=== PATIENT | female | born 1990 | race Caucasian/White ===

== ENCOUNTER 2018-04-16 22:52 | Emergency (ER) | payer SELFPAY ==
[~2018-04-16] VITALS: Ht 157.5 cm; Wt 52.8 kg
[2018-04-16 23:04] VITALS: Ht 157.5 cm; Wt 52.8 kg
[2018-04-17 00:25] LABS: BASOPHIL % 0.3 % (0-2); PLATELET COUNT 224 x10^3mcL (130-400); RED CELL DISTRIBUTION WIDTH 13.1 % (11.5-14.5)
[2018-04-17 00:28] LABS: UA SPECIFIC GRAVITY >=1.030 (1.005-1.035); microscopic required? YES; urine erythrocyte 3+ (NEGATIVE)
[2018-04-17 01:48] VITALS: BP 127/67
[2018-04-18] MEDS ORDERED: NITROFURANTOIN100 MG PO (00:02)
== END 2018-04-17 01:48 | disposition home or self-care (01) ==
LOC: ED 22:52
PROVIDERS: Emergency Medicine
DX: O20.0 Threatened abortion (principal); Z88.0 Allergy status to penicillin
CPT/HCPCS: 36415

== ENCOUNTER 2018-04-17 19:59 | Inpatient (IN) | payer SELFPAY ==
[~2018-04-17] VITALS: Ht 157.5 cm; Wt 52.7 kg
[2018-04-17 20:23] VITALS: Ht 157.5 cm; Wt 52.7 kg
[2018-04-17 20:48] LABS: BASOPHIL % 0.7 % (0-2); PLATELET COUNT 272 x10^3mcL (130-400); RED CELL DISTRIBUTION WIDTH 12.6 % (11.5-14.5)
[2018-04-18] VITALS (8 sets, daily range): BP systolic 92–113; BP diastolic 50–77
[2018-04-18] MEDS ORDERED: NITROFURANTOIN100 MG PO (00:02)
[2018-04-18 00:08] LABS: MAGNESIUM 2.1 mg/dL (1.8-2.4); PHOSPHOROUS 6.1 mg/dL (2.5-4.9)
[2018-04-18 00:29] LABS: FREE T4 0.89 ng/dL (0.76-1.46); FREE THYROXINE INDEX 2.2 ug/dL (1.4-4.5); T4(THYROXINE) 6.6 ug/dL (4.7-13.3)
[2018-04-18 00:51] LABS: T3 TOTAL 1.3 ng/mL
[2018-04-18 06:29] LABS: BASOPHIL % 0.3 % (0-2); PLATELET COUNT 213 x10^3mcL (130-400); RED CELL DISTRIBUTION WIDTH 11.9 % (11.5-14.5)
[2018-04-18 06:32] LABS: CALCIUM 8.4 mg/dL (8.5-10.1); CARBON DIOXIDE 25.3 mmol/L (21-32); CHLORIDE SERUM 107 mmol/L (98-107); CREATININE SERUM 0.4 mg/dL (0.6-1.0); GFR1 > 60 mL/min; GLUCOSE SERUM 100 mg/dL (74-106); MAGNESIUM 1.7 mg/dL (1.8-2.4); PHOSPHOROUS 4.5 mg/dL (2.5-4.9); POTASSIUM SERUM 4.1 mmol/L (3.5-5.1); SODIUM SERUM 139 mmol/L (136-145)
[2018-04-18 13:29] LABS: BASOPHIL % 0.3 % (0-2); PLATELET COUNT 190 x10^3mcL (130-400); RED CELL DISTRIBUTION WIDTH 12.5 % (11.5-14.5)
[2018-04-19 00:59] LABS: BASOPHIL % 0.2 % (0-2); PLATELET COUNT 198 x10^3mcL (130-400); RED CELL DISTRIBUTION WIDTH 11.9 % (11.5-14.5)
[2018-04-19 05:03] VITALS: BP 98/42
[2018-04-19 06:53] LABS: CALCIUM 8.1 mg/dL (8.5-10.1); CARBON DIOXIDE 24.9 mmol/L (21-32); CHLORIDE SERUM 106 mmol/L (98-107); CREATININE SERUM 0.6 mg/dL (0.6-1.0); GFR1 > 60 mL/min; GLUCOSE SERUM 108 mg/dL (74-106); MAGNESIUM 1.6 mg/dL (1.8-2.4); PHOSPHOROUS 4.1 mg/dL (2.5-4.9); SODIUM SERUM 137 mmol/L (136-145)
[2018-04-19 07:46] LABS: BASOPHIL % 0.1 % (0-2); PLATELET COUNT 151 x10^3mcL (130-400); RED CELL DISTRIBUTION WIDTH 12.7 % (11.5-14.5)
[2018-04-19 08:10] VITALS: BP 90/44
[2018-04-19 08:12] VITALS: BP 90/44
[2018-04-19 12:03] VITALS: BP 115/70
[2018-04-19 12:44] LABS: BASOPHIL % 0.3 % (0-2); PLATELET COUNT 151 x10^3mcL (130-400); RED CELL DISTRIBUTION WIDTH 13.2 % (11.5-14.5)
[2018-04-19 16:10] VITALS: BP 94/49
== END 2018-04-19 18:14 | disposition home or self-care (01) | DRG 770 ==
LOC: ED 19:59 → MU 22:52 → DU 22:52 → MU 04-18 00:23 → DU 04-18 09:58
PROVIDERS: Emergency Medicine; Family Medicine; Internal Medicine
PROC: 10D17ZZ Extraction of Products of Conception, Retained, Via Natural or Artificial Opening (ICD-10-PCS; principal; 2018-04-17)
PROC: 30233N1 Transfusion of Nonautologous Red Blood Cells into Peripheral Vein, Percutaneous Approach (ICD-10-PCS; 2018-04-17)
DX: O03.4 Incomplete spontaneous abortion without complication (principal); N17.0 Acute kidney failure with tubular necrosis; A41.9 Sepsis, unspecified organism; O98.811 Other maternal infectious and parasitic diseases complicating pregnancy, first trimester; O26.831 Pregnancy related renal disease, first trimester; D62 Acute posthemorrhagic anemia; E83.39 Other disorders of phosphorus metabolism; N93.9 Abnormal uterine and vaginal bleeding, unspecified; O99.011 Anemia complicating pregnancy, first trimester; O99.281 Endocrine, nutritional and metabolic diseases complicating pregnancy, first trimester; Z88.0 Allergy status to penicillin; Z3A.01 Less than 8 weeks gestation of pregnancy; Z87.891 Personal history of nicotine dependence
CPT/HCPCS: 83880; 84439; J0696; J1580; J2270; J2405; J2590; J3010; J3475; J3490; J7030; J7050; P9016; Q0092; Q0163

== ENCOUNTER 2018-07-25 21:27 | Emergency (ER) | payer SELFPAY ==
[~2018-07-25] VITALS: Ht 157.5 cm; Wt 54.9 kg
[~2018-07-25 21:27] MED LIST: NITROFURANTOIN100 MG PO
[2018-07-25 22:06] VITALS: Ht 157.5 cm; Wt 54.9 kg
[2018-07-26 00:08] LABS: BASOPHIL % 0.5 % (0-2); PLATELET COUNT 275 x10^3mcL (130-400); RED CELL DISTRIBUTION WIDTH 13.7 % (11.5-14.5)
[2018-07-26 00:10] LABS: UA SPECIFIC GRAVITY >=1.030 (1.005-1.035); microscopic required? YES; urine erythrocyte 2+ (NEGATIVE)
[2018-07-26 00:28] LABS: CALCIUM 9.3 mg/dL (8.5-10.1); CARBON DIOXIDE 25.1 mmol/L (21-32); CHLORIDE SERUM 102 mmol/L (98-107); CREATININE SERUM 0.7 mg/dL (0.6-1.0); GFR1 > 60 mL/min; GLUCOSE SERUM 93 mg/dL (74-106); POTASSIUM SERUM 3.4 mmol/L (3.5-5.1); SODIUM SERUM 139 mmol/L (136-145)
[2018-07-26 00:31] LABS: ALKALINE PHOSPHATASE 51 U/L (46-116); ALT/SGPT 19 U/L (14-59); AMYLASE 34 U/L (25-115); AST/SGOT 19 U/L (15-37); BILIRUBIN TOTAL 0.1 mg/dL (0.20-1.00); CHOLESTEROL 162 mg/dL (<200); LIPASE 66 IU/L (73-393); TOTAL PROTEIN, SERUM 7.7 g/dL (6.4-8.2)
[2018-07-26 02:00] VITALS: BP 122/72
== END 2018-07-26 02:00 | disposition home or self-care (01) ==
LOC: ED 21:27
PROVIDERS: Emergency Medicine
DX: N39.0 Urinary tract infection, site not specified (principal); D72.829 Elevated white blood cell count, unspecified; K80.20 Calculus of gallbladder without cholecystitis without obstruction; F17.210 Nicotine dependence, cigarettes, uncomplicated; Z88.0 Allergy status to penicillin
CPT/HCPCS: 99406; J1885; J7030; Q0092

== ENCOUNTER 2018-12-18 19:05 | Emergency (ER) | payer OTHER ==
[~2018-12-18] VITALS: Ht 157.5 cm; Wt 58.1 kg
[2018-12-18 19:19] VITALS: Ht 157.5 cm; Wt 58.1 kg
[2018-12-18 20:38] VITALS: BP 116/76
== END 2018-12-18 20:38 | disposition home or self-care (01) ==
LOC: ED 19:05
DX: S16.1XXA Strain of muscle, fascia and tendon at neck level, initial encounter (principal); R51 Headache; Z88.0 Allergy status to penicillin; V43.52XA Car driver injured in collision with other type car in traffic accident, initial encounter; Y93.I9 Activity, other involving external motion; Y92.411 Interstate highway as the place of occurrence of the external cause; Y99.8 Other external cause status
CPT/HCPCS: J1885

== ENCOUNTER 2019-05-23 03:16 | Emergency (ER) | payer OTHER ==
[~2019-05-23] VITALS: Ht 154.9 cm; Wt 56.2 kg
[2019-05-23 03:45] VITALS: Ht 154.9 cm; Wt 56.2 kg
[2019-05-23 05:02] LABS: BASOPHIL % 0.9 % (0-2); PLATELET COUNT 272 x10^3mcL (130-400)
[2019-05-23 05:05] LABS: AMPHETAMINE QUAL UR NONE DETECTED (See below)
[2019-05-23 05:08] LABS: CALCIUM 8.6 mg/dL (8.5-10.1); CARBON DIOXIDE 25.1 mmol/L (21-32); CHLORIDE SERUM 107 mmol/L (98-107); CREATININE SERUM 0.6 mg/dL (0.6-1.0); GFR1 > 60 mL/min; GLUCOSE SERUM 89 mg/dL (74-106); POTASSIUM SERUM 3.6 mmol/L (3.5-5.1); SODIUM SERUM 142 mmol/L (136-145)
[2019-05-23 05:21] LABS: ALKALINE PHOSPHATASE 54 U/L (46-116); ALT/SGPT 18 U/L (14-59); AST/SGOT 17 U/L (15-37); BILIRUBIN TOTAL 0.28 mg/dL (0.20-1.00); TOTAL PROTEIN, SERUM 7.5 g/dL (6.4-8.2)
[2019-05-23 06:30] VITALS: BP 99/57
== END 2019-05-23 06:32 | disposition home or self-care (01) ==
LOC: ED 03:16
PROVIDERS: Emergency Medicine
DX: F10.129 Alcohol abuse with intoxication, unspecified (principal); R41.82 Altered mental status, unspecified; Z88.0 Allergy status to penicillin
CPT/HCPCS: 82962; G0480; J7030